=== PATIENT | female | born 1980 | race Caucasian/White ===

== ENCOUNTER 2019-09-20 17:41 | Emergency (ER) | payer OTHER ==
[~2019-09-20] VITALS: Ht 165.1 cm; Wt 108.9 kg
[~2019-09-20 17:41] MED LIST: ACETAMINOPHEN-1 EAC1 PO; BACTRIM DS TAB1 EACH PO; HYDROCHLOROTHIA25 M2 PO; HYDROCODONE-AP1 EAC6 PO; IBUPROFEN 200200 M1 PO; NOHOMEMEDICATIONS; NORCO 5-325 TA1 EACH PO; PREDNISONE 20 M20 MG PO; VENTOLIN HFA 1818 GM INH; ZPAK PO
[2019-09-20 18:41] LABS: INFLUENZA A ANTIGEN Negative (Negative); INFLUENZA B ANTIGEN Negative (Negative)
[2019-09-20] MEDS ORDERED: ZPAK PO (19:57)
[2019-09-20] MEDS ORDERED: MEDROLDOSEPACK PO (19:57)
[2019-09-20] MEDS ORDERED: VENTOLIN HFA 1818 GM INH (19:58)
[2019-09-20] MEDS ORDERED: TESSALON PERLE100 MG PO (19:58)
[2019-09-20] MEDS ORDERED: DOXYCYCLINE 10100 MG PO (20:01)
[2019-09-20] MEDS ORDERED: ONDANSETRON HCL4 M2 PO (20:06)
[2019-09-20 20:24] VITALS: BP 140/90
== END 2019-09-20 20:24 | disposition home or self-care (01) ==
LOC: M.ERS 17:41
PROVIDERS: Personal Emergency Response Attendant
DX: J18.8 Other pneumonia, unspecified organism (principal); K21.9 Gastro-esophageal reflux disease without esophagitis; J45.909 Unspecified asthma, uncomplicated; Z88.6 Allergy status to analgesic agent; Z88.0 Allergy status to penicillin

== ENCOUNTER 2021-01-21 16:17 | Emergency (ER) | payer OTHER ==
[~2021-01-21] VITALS: Ht 165.1 cm; Wt 119.3 kg
[~2021-01-21 16:17] MED LIST changes: +DOXYCYCLINE 10100 MG PO; +MEDROLDOSEPACK PO; +ONDANSETRON HCL4 M2 PO; +TESSALON PERLE100 MG PO
[2021-01-21 17:00] VITALS: BP 132/78
== END 2021-01-21 17:23 | disposition home or self-care (01) ==
LOC: M.ERS 16:17
DX: S90.32XA Contusion of left foot, initial encounter (principal); J45.909 Unspecified asthma, uncomplicated; K21.9 Gastro-esophageal reflux disease without esophagitis; Z98.890 Other specified postprocedural states; Z88.6 Allergy status to analgesic agent; Z88.0 Allergy status to penicillin; W20.8XXA Other cause of strike by thrown, projected or falling object, initial encounter; Y93.89 Activity, other specified; Y92.89 Other specified places as the place of occurrence of the external cause; Y99.8 Other external cause status